=== PATIENT | male | born 1955 | race Two or more races ===

== ENCOUNTER 2024-07-13 20:02 | Inpatient (IN) | payer MEDICARE, OTHER ==
[~2024-07-13] VITALS: Ht 165.1 cm; Wt 79.2 kg
--- NOTE | 2024-07-13 20:37 | ED.PDOC ---
Musculoskeletal HPI Comments 68-year-old male who came to ER due to lower extremity swelling. Patient has history of liver cirrhosis, congestive heart failure, hypertension, diabetes, epilepsy. Patient had a right hip fracture due to a fall injury a year ago, it has been in therapy since then. For the past week, patient complaining of right lower extremity swelling and pain. Complaining of difficulty ambulating. Denies any acute chest pains or shortness a breath. Denies using any blood thinners Chief Complaint: Lower extremity Time Seen by MD: 20:36 Reviewed Notes: Nurses Notes Information Source: Patient Mode of Arrival: Wheelchair Extremity Location: Leg Timing: Days Prehospital treatment: None Severity: Moderate Able to Move Extremity: Yes Bear Weight: Limited Pain: Moderate Hand Dominance: Right Mechanism: Spontaneous Circumstances: Fall Onset of Symptoms: After Trauma Symptoms: Swelling, Pain History of: Hip Operation (Right) Associated signs and symptoms: Leg pain (Right) Past Medical History PAST MEDICAL HISTORY: CHF, DM, HTN, Liver (Liver cirrhosis) Past Medical History (Other): Hepatic encephalopathy, traumatic brain injury, portal hypertension Surgical History (Other): Right hip surgery Family History Family History: Reviewed,noncontributory to illness Social History Smoker: Non-Smoker Alcohol: Sober Drugs: Denies Drug Use Lives In: Home Constitutional: denies: chills, diaphoresis, fatigue, fever, malaise, sweats, weakness, others EENTM: denies: blurred vision, double vision, ear bleeding, ear discharge, ear drainage, ear pain, ear ringing, eye pain, eye redness, hearing loss, mouth pain, mouth swelling, nasal discharge, nose bleeding, nose congestion, nose pain, photophobia, tearing, throat pain, throat swelling, voice changes, others Respiratory: denies: cough, hemoptysis, orthopnea, SOB at rest, shortness of breath, SOB with excertion, stridor, wheezing, others Cardiovascular: denies: chest pain, dizzy spells, diaphoresis, Dyspnea on exertion, edema, irregular heart beat, left arm pain, lightheadedness, palp itations, PND, syncope, others Gastrointestinal: denies: abdomen distended, abdominal pain, blood streaked bowels, constipated, diarrhea, dysphagia, difficulty swallowing, hematemesis, melena, nausea, poor appetite, poor fluid intake, rectal bleeding, rectal pain, vomiting, others Genitourinary: denies: burning, dysuria, flank pain, frequency, hematuria, incontinence, penile discharge, penile sore, pain, testicle pain, testicle swelling, urgency, others Neurological: denies: dizziness, fainting, headache, left sided numbness, left sided weakness, numbness, paresthesia, pre-existing deficit, right sided numbness, right sided weakness, seizure, speech problems, tingling, tremors, weakness, others Musculoskeletal: reports: muscle pain (Right lower extremity), muscle stiffness (Right lower extremity swelling); denies: back pain, gout, joint pain, joint swelling, neck pain, others Integumetry: denies: bruises, change in color, change in hair/nails, dryness, laceration, lesions, lumps, rash, wounds, others Allergic/Immunocompromised: denies: Difficulty Healing, Frequent Infections, Hives, Itching, others Hematologic/Lymphatic: denies: anemia, blood clots, easy bleeding, easy bruising, swollen glands, others Endocrine: denies: excessive hunger, excessive sweating, excessive thirst, excessive urination, flushing, intolerance to cold, intolerance to heat, unexplained weight gain, unexplained weight loss, others Psychiatric: denies: anxiety, bipolar disorder, depression, hopeless, panic disorder, schizophrenia, sleepless, suicidal, others Physical Exam General Appearance: No Apparent Distress, Normal HEENT: Normal ENT Inspection, Pharynx Normal, TMs Normal Neck: Full Range of Motion, Non-Tender, Normal, Normal Inspection Respiratory: Chest Non-Tender, Lungs Clear, No Accessory Muscle Use, No Respiratory Distress, Normal Breath Sounds Cardiovascular: No Edema, No JVD, No Murmur, No Gallop, Normal Peripheral Pulses, Regular Rate/Rhythm Breast Exam: Deferred Gastrointestinal: No Organomegaly, Non Tender, No Pulsatile Mass, Normal Bowel Sounds, Soft Genitalia: Deferred Pelvic: Deferred Rectal: Deferred Extremities: No calf tenderness, Normal capillary refill, Normal inspection, Normal range of motion, Non-tender, No pedal edema Musculoskeletal : Apperance: Normal Neurologic: Alert, home child care provider II-XII nml as Tested, No Motor Deficits, Normal Affect, Normal Mood, No Sensory Deficits Cerebellar Function: Normal Reflexes: Normal Skin: Dry, Normal Color, Warm Lymphatic: No Adenopathy Was a procedure done? Was a procedure done?: No Differential Diagnosis EXT Differential Diagnosis: CHF, Deep Vein Thrombosis, Neurovascular injury, Arthritis X-Ray, Labs, Meds, VS Vital Signs Date Time Temp Pulse Resp B/P (MAP) Pulse Ox O2 Delivery O2 Flow Rate FiO2 07/13/24 21:07 97.8 65 17 134/67 (89) 98 97.8 Lab Test 07/13/24 21:49 07/13/24 20:48 Range/Units Troponin I High Sensitivity 7 7 </=54 ng/L White Blood Count 6.4 4.4-10.8 10^3/uL Red Blood Count 4.32 L 4.5-5.90 10^6/uL Hemoglobin 15.4 13.5-17.5 g/dL Hematocrit 43.5 41.0-53.0 % Mean Corpuscular Volume 100.8 H 80.0-100.0 fL Mean Corpuscular Hemoglobin 35.7 H 28.0-32.0 pg Mean Corpuscular Hemoglobin Concent 35.4 32.0-36.0 g/dL Red Cell Distribution Width 17.5 H 11.8-14.3 % Platelet Count 38 L 140-450 10^3/uL Mean Platelet Volume 8.9 6.9-10.8 fL Neutrophils (%) (Auto) 70.9 37.0-80.0 % Lymphocytes (%) (Auto) 19.1 10.0-50.0 % Monocytes (%) (Auto) 7.9 0.0-12.0 % Eosinophils (%) (Auto) 1.3 0.0-7.0 % Basophils (%) (Auto) 0.8 0.0-2.0 % Neutrophils # (Auto) 4.5 1.6-8.6 10 ^3/uL Lymphocytes # (Auto) 1.2 0.4-5.4 10 ^3/uL Monocytes # (Auto) 0.5 0-1.3 10 ^3/uL Eosinophils # (Auto) 0.1 0-0.8 10 ^3/uL Basophils # (Auto) 0 0-0.2 10 ^3/uL Nucleated Red Blood Cells 0.3 % Platelet Estimate Decreased Macrocytosis Slight Sodium Level 137 136-145 mmol/L Potassium Level 4.8 3.5-5.1 mmol/L Chloride Level 110 H 98-107 mmol/L Carbon Dioxide Level 23 20-31 mmol/L Anion Gap 4 L 5-15 Blood Urea Nitrogen 10 9-23 mg/dL Creatinine 0.53 L 0.700-1.30 mg/dL Glomerular Filtration Rate Calc 110 >90 mL/min BUN/Creatinine Ratio 18.9 10.0-20.0 Serum Glucose 343 H 74-106 mg/dL Calcium Level 8.3 L 8.7-10.4 mg/dL B-Type Natriuretic Peptide 75.40 0-100 pg/mL CHEST RADIOGRAPH Indication: sob Technique: Single frontal view of the chest was obtained Comparison: None FINDINGS: Lines and Tubes: None Lungs: Mildly prominent pulmonary interstitial markings diffusely throughout both lung de jesus.. Pleura: No effusion. No pneumothorax. Cardiomediastinal contours: Unremarkable Bones: No acute osseous abnormality. IMPRESSION: 1. Prominent interstitial markings diffusely throughout both lung de jesus. Correlate clinically for possible congestive failure versus pneumonia. Time of 1ST Reevaluation: 20:32 Reevaluation 1ST: Unchanged Patient Education/Counseling: Diagnosis, Treatment Family Education/Counseling: Diagnosis, Treatment Departure 1 Departure Time of Disposition: 23:35 (Patient with a worsening lower extremity edema generally feeling unwell. We will admit patient for further workup and expert consultation) Impression: Primary Impression: Lower extremity edema Additional Impression: Generalized weakness Disposition: ADMITTED INPATIENT Admit to: Med Surg Condition: Serious Critical Care Note Critical Care Time?: No Stability Stability form required: No Heart Score Heart Score: Heart Score Response (Comments) Value History N/A 0 EKG N/A 0 Age N/A 0 Risk Factors N/A 0 Troponin N/A 0 Total 0 I personally scribed for CARLA YUEN MD ([email or web address]) on 07/13/24 at 20:37. Electronically submitted by Checo Mcelroy ([email or web address]). I personally scribed for CARLA YUEN MD ([email or web address]) on 07/13/24 at 21:29. Electronically submitted by Checo Mcelroy ([employer]). CARLA YUEN MD July 13, 2024 20:37
[2024-07-13 20:59] LABS: Basophils # (auto) 0 10 ^3/uL (0-0.2); Eosinophils # (auto) 0.1 10 ^3/uL (0-0.8); Hemoglobin 15.4 g/dL (13.5-17.5); Lymphocytes # (auto) 1.2 10 ^3/uL (0.4-5.4); Monocytes # (auto) 0.5 10 ^3/uL (0-1.3); Nucleated Red Blood Cells % 0.3 %; Red Cell Distribution Width 17.5 % (11.8-14.3)
[2024-07-13 21:01] LABS: Basophils % (auto) 0.8 % (0.0-2.0); Eosinophils % (auto) 1.3 % (0.0-7.0); Hematocrit 43.5 % (41.0-53.0); Lymphocytes % (auto) 19.1 % (10.0-50.0); Mean Corpuscular Hemoglobin 35.7 pg (28.0-32.0); Mean Corpuscular Hgb Conc. 35.4 g/dL (32.0-36.0); Mean Corpuscular Volume 100.8 fL (80.0-100.0); Monocytes % (auto) 7.9 % (0.0-12.0); Neutrophils # (auto) 4.5 10 ^3/uL (1.6-8.6); Neutrophils % (auto) 70.9 % (37.0-80.0); Platelet Count (auto) 38 10^3/uL (140-450); Red Blood Cells 4.32 10^6/uL (4.5-5.90); White Blood Cell 6.4 10^3/uL (4.4-10.8)
[2024-07-13 21:13] LABS: Anion Gap 4 (5-15); Carbon Dioxide 23 mmol/L (20-31); Chloride 110 mmol/L (98-107); Potassium 4.8 mmol/L (3.5-5.1); Sodium 137 mmol/L (136-145)
[2024-07-13 21:16] LABS: Calcium 8.3 mg/dL (8.7-10.4); Macrocytosis Slight; Platelet Estimate Decreased
[2024-07-13 21:19] LABS: BUN/Creatinine Ratio 18.9 (10.0-20.0); Blood Urea Nitrogen 10 mg/dL (9-23); Glucose 343 mg/dL (74-106)
--- NOTE | 2024-07-13 21:22 | DVH ---
CHEST RADIOGRAPH Indication: sob Technique: Single frontal view of the chest was obtained Comparison: None FINDINGS: Lines and Tubes: None Lungs: Mildly prominent pulmonary interstitial markings diffusely throughout both lung de jesus.. Pleura: No effusion. No pneumothorax. Cardiomediastinal contours: Unremarkable Bones: No acute osseous abnormality. IMPRESSION: 1. Prominent interstitial markings diffusely throughout both lung de jesus. Correlate clinically for po ssible congestive failure versus pneumonia.
--- NOTE | 2024-07-14 00:13 | DVH ---
Bilateral lower extremity venous duplex Clinical History: rle edema Comparison: None Technique: Duplex Doppler evaluation of the deep venous systems of both lower extremities from the common femora l veins to the popliteal veins including color Doppler and spectral/pulsed waveform analysis was perf ormed. Findings: RIGHT SIDE: The common femoral vein demonstrates appropriate compressibility and waveform variability. There is compressibility/patency of the great saphenous vein at the proximal thigh. The femoral vein demonstrates appropriate compressibility and waveform variability. The deep femoral vein demonstrates appropriate compressibility and waveform variability. The popliteal vein demonstrates appropriate compressibility and waveform variability. There is normal compressibility at the tibioperoneal trunk. LEFT SIDE: The common femoral vein demonstrates appropriate compressibility and waveform variability. There is compressibility/patency of the great saphenous vein at the proximal thigh. The femoral vein demonstrates appropriate compressibility and waveform variability. The deep femoral vein demonstrates appropriate compressibility and waveform variability. The popliteal vein demonstrates appropriate compressibility and waveform variability. There is normal compressibility at the tibioperoneal trunk. Impression: No evidence of right or left femoropopliteal venous thrombosis.
[2024-07-14] MEDS ORDERED: DOCUSATE SOD 100 MG CAP PO PRN (00:45)
[2024-07-14] MEDS ORDERED: ONDANSETRON HCL 4 MG/2 ML VIAL IV PRN (00:45)
[2024-07-14] MEDS ORDERED: FUROSEMIDE 20 MG TAB PO ONE (01:00)
--- NOTE | 2024-07-14 01:12 | DVHHP2 ---
History of Present Illness History of Present Illness Patient is 68 years old male with a past medical history of hypertension, diabetes mellitus type 2, hyperlipidemia, CHF, cirrhosis of liver, portal hypertension, history of epilepsy, history of hepatic encephalopathy, history of right hip fracture, status post surgery, history of traumatic brain injury came with a complaint of leg swelling. As per patient he has been having worsening leg swelling for last 1 week. It was mild before but leg swelling got worse in last 1 week. Patient reported he ambulates occasionally but since most of the time. Patient denied any chest pain, shortness of breath, acute diarrhea, or constipation, joint pain or swelling, any sick contact, nausea or vomiting. Initial lab workup revealed thrombocytopenia with a platelet 38, MCV 100.8, blood sugar 343, serum bilirubin 3.1, direct bilirubin 1.24, AST and ALT with a normal limit. Ammonia 124. troponin bed with a normal limit. Positive for in fluenza type B. negative for COVID. Chest x-ray -Prominent interstitial markings diffusely throughout both lung de jesus. Correlate clinically for possible congestive failure versus pneumonia. Venous Doppler negative for DVT. Ultrasound of the gallbladder revealed- Cirrhosis. Absent flow in the main portal vein suspicious for portal vein thrombosis. Splenomegaly. Ascites. Past Medical History hypertension, diabetes mellitus type 2, hyperlipidemia, CHF, cirrhosis of liver, portal hypertension, history of epilepsy, history of hepatic encephalopathy, history of right hip fracture, status post surgery, history of traumatic brain injury Past Surgical History Right hip surgery Past Social History Lives with niece, ex alcoholic/denied smoking or drug abuse. Homeless lactulose 30 mL per day, Lasix 20 mg p.o. daily, Keppra 500 b.i.d., pantoprazole daily, insulin Lantus 20 q.a.m., insulin lispro 8 units subcutaneously 3 times a day. Review of Systems Review of Systems Allergy- NKDA Patient was seen today at the bedside. Cardiovascular- deny acute chest pain or shortness of breath or cough or palpitation Respiratory denies cough or short of breath or wheezing Gastrointestinal- denies any rectal bleeding, nausea or vomiting Neurological- denies acute dysarthria, dysphagia, change in vision Psychiatry- denies depression or SI or HI Skin- denies acute rash or purpura Allergies: Coded Allergies: NO KNOWN ALLERGIES (Unverified , 07/14/24) Medications Current Medications Medications Dose Ordered Sig/Annette Route Start Time Stop Time Status Last Admin Dose Admin Sodium Chloride 10 ml Q8HR IV 07/14/24 06:00 UNV Ondansetron HCl 4 mg Q4HP PRN IV 07/14/24 00:45 UNV Docusate Sodium 100 mg BIDPRN PRN PO 07/14/24 00:45 UNV Lactulose 30 ml BID PO 07/14/24 10:00 UNV Insulin Glargine 20 units DAILY@1000 SC 07/14/24 10:00 UNV Insulin Human Lispro 6 units TIDAC SC 07/14/24 07:00 UNV Levetiracetam 500 mg BID PO 07/14/24 10:00 UNV Pantoprazole Sodium 40 mg DAILY@0600 PO 07/14/24 06:00 UNV Furosemide 20 mg BIDD IV 07/14/24 06:00 UNV Exam Vital Signs Vital Signs Date Time Temp Pulse Resp B/P (MAP) Pulse Ox O2 Delivery O2 Flow Rate FiO2 07/13/24 23:12 98.4 67 20 140/69 (92) 97 98.4 07/13/24 23:12 Room Air Exam General examination- awake, alert, oriented, spider telangiectasia at the chest+ HEENT- PEERLA, no acute nasal discharge Cardiovascular- S1-S2 audible, rate and rhythm regular, no murmur Respiratory- bilateral lower lung crackles+ Gastrointestinal-nontender, bowel sound+. Nondistended Musculoskeletal-no acute joint swelling or tenderness or redness Lower extremity- bilateral leg edema+++ Neurological- cranial nerves intact, no acute dysarthria or dysphagia Psychiatry- denies depression or SI or HI Skin- no acute rash or purpura Labs/Xrays Labs Test 07/13/24 21:49 07/13/24 20:48 Range/Units Troponin I High Sensitivity 7 </=54 ng/L White Blood Count 6.4 4.4-10.8 10^3/uL Red Blood Count 4.32 L 4.5-5.90 10^6/uL Hemoglobin 15.4 13.5-17.5 g/dL Hematocrit 43.5 41.0-53.0 % Mean Corpuscular Volume 100.8 H 80.0-100.0 fL Mean Corpuscular Hemoglobin 35.7 H 28.0-32.0 pg Mean Corpuscular Hemoglobin Concent 35.4 32.0-36.0 g/dL Red Cell Distribution Width 17.5 H 11.8-14.3 % Platelet Count 38 L 140-450 10^3/uL Mean Platelet Volume 8.9 6.9-10.8 fL Neutrophils (%) (Auto) 70.9 37.0-80.0 % Lymphocytes (%) (Auto) 19.1 10.0-50.0 % Monocytes (%) (Auto) 7.9 0.0-12.0 % Eosinophils (%) (Auto) 1.3 0.0-7.0 % Basophils (%) (Auto) 0.8 0.0-2.0 % Neutrophils # (Auto) 4.5 1.6-8.6 10 ^3/uL Lymphocytes # (Auto) 1.2 0.4-5.4 10 ^3/uL Monocytes # (Auto) 0.5 0-1.3 10 ^3/uL Eosinophils # (Auto) 0.1 0-0.8 10 ^3/uL Basophils # (Auto) 0 0-0.2 10 ^3/uL Nucleated Red Blood Cells 0.3 % Platelet Estimate Decreased Macrocytosis Slight Sodium Level 137 136-145 mmol/L Potassium Level 4.8 3.5-5.1 mmol/L Chloride Level 110 H 98-107 mmol/L Carbon Dioxide Level 23 20-31 mmol/L Anion Gap 4 L 5-15 Blood Urea Nitrogen 10 9-23 mg/dL Creatinine 0.53 L 0.700-1.30 mg/dL Glomerular Filtration Rate Calc 110 >90 mL/min BUN/Creatinine Ratio 18.9 10.0-20.0 Serum Glucose 343 H 74-106 mg/dL Calcium Level 8.3 L 8.7-10.4 mg/dL B-Type Natriuretic Peptide 75.40 0-100 pg/mL Assessment/Plan Assessment/Plan Assessment and plan Suspected acute decompensated liver failure Suspected portal vein thrombosis-ordered CT angio of the abdomen and pelvis- anticoagulant could not be started due to thrombocytopenia, platelets 22636 Rule out exertion of heart failure systolic versus diastolic Bilateral leg swelling likely due to acute decompensated heart failure/decompensated CHF Influenza type B positive Thrombocytopenia likely due to portal hypertension Spider telangiectasia Portal hypertension Splenomegaly Ascites Cirrhosis of liver Hypertension Diabetes mellitus type 2 Epilepsy Hyperlipidemia History of traumatic brain injury Doppler Study negative for DVT Ultrasound of the gallbladder revealed- Cirrhosis. Absent flow in the main portal vein suspicious for portal vein thrombosis. Splenomegaly. Ascites. Plan Anticoagulant could not be started for suspected portal vein thrombosis due to thrombocytopenia Ordered IV Lasix 40 b.i.d. Ordered spironolactone 25 mg p.o. daily Ordered insulin lispro and Lantus Ordered Keppra 500 mg b.i.d. Lactulose 30 mL b.i.d. Ordered Tamiflu Pantoprazole as prescribed Ordered ultrasound of the gallbladder Ordered hepatic panel Ordered hepatitis panel Ordered PT INR Ordered serum ammonia level Ordered UDS, serum alcohol Ordered urinalysis Goals of care, Code status ; discussed with >15 minutes PUD prophylaxis: Pantoprazole DVT prophylaxis: Patient with thrombocytopenia, ordered SCD Plan discussed with Dr. Todd , nursing staff, Total time spent on patient evaluation, chart review, assessment and plan, discussion discussion >35 minutes Plan discussed with: Patient, Other (nividhya, RN) My Orders Orders - CHAMP GUZMAN RESIDENT Procedure Category Date Status Time Admit ADMIT 07/14/24 Transmitted 00:41 Code Status CODE 07/14/24 Transmitted 00:41 Sodium Chloride Lock PHA 07/14/24 Logged (Saline Lock Ns) 06:00 Ondansetron Hcl PHA 07/14/24 Logged (Zofran) 00:45 Docusate Sodium PHA 07/14/24 Logged Capsule (Colace 00:45 Complete Blood Count LAB 07/15/24 Verified 04:00 Comprehensive LAB 07/15/24 Verified Metabolic Panel 04:00 Echo 2d Mode Cardiac US 07/14/24 Logged DOP 00:41 Notify Of Changes [facility] 07/14/24 In Process From Base 00:41 Electrical Technician For [facility] 07/14/24 In Process 24 Hours 00:41 Hepatic Panel LAB 07/14/24 Logged 00:46 Thyroid Stimulating LAB 07/14/24 Logged Hormone 00:46 Magnesium LAB 07/14/24 Logged 00:46 Ammonia LAB 07/14/24 Logged 00:46 Acute Hepatitis Panel LAB 07/14/24 Logged 00:46 Hepatitis B Core Igm LAB 07/14/24 Logged 00:46 Hepatitis B Core LAB 07/14/24 Logged Total Antibod 00:46 Hepatitis B Surface LAB 07/14/24 Logged Antibody 00:46 Hepatitis B Surface LAB 07/14/24 Logged Antigen 00:46 Hepatitis C Antibody LAB 07/14/24 Logged 00:46 Prothrombin Time W/ LAB 07/14/24 Logged INR 00:46 Gallbladder US 07/14/24 Logged 00:46 Spironolactone PHA 07/14/24 Logged (Aldactone) 01:00 Lactulose Oral PHA 07/14/24 Logged 10:00 Lactulose Oral PHA 07/14/24 Logged 01:00 Insulin Lantus PHA 07/14/24 Logged (Glargine) (Lantus) 10:00 Insulin Lispro PHA 07/14/24 Logged (Human) (Humalog) 07:00 Levetiracetam Tablet PHA 07/14/24 Logged (Keppra Tablet) 01:00 Levetiracetam Tablet PHA 07/14/24 Logged (Keppra Tablet) 10:00 Pantoprazole Tablet PHA 07/14/24 Logged (Protonix Tablet) 06:00 Pantoprazole Tablet PHA 07/14/24 Logged (Protonix Tablet) 01:00 Lactic Acid W/ Reflex LAB 07/14/24 Logged Order 00:55 Furosemide Injection PHA 07/14/24 Logged (Lasix Injection) 01:00 Furosemide Injection PHA 07/14/24 Logged (Lasix Injection) 06:00 Covid19 Antigen Radha LAB 07/14/24 Logged Rapid Influenza A&B LAB 07/14/24 Logged 01:00 Drug Screen LAB 07/14/24 Logged 01:02 Blood Alcohol LAB 07/14/24 Logged 01:02 Date of Service: July 14, 2024 Billing Provider: MOISE TODD MD Common Visit Codes: 26343-UCXKGFB INP/OBS CARE (HIGH) Secondary Visit Codes: 46097-[id number] CARE PLAN 30 MINUTES THOMASRAYMUNDOBRODY RESIDENT July 14, 2024 01:12
[2024-07-14] MEDS ORDERED: DEXTROSE (50%) 50ML SYRG IV PRN (01:15)
[2024-07-14 02:16] LABS: INR 1.3 (0.9-1.15); Prothrombin Time 13.4 sec (9.3-11.8)
[2024-07-14 02:22] LABS: Alanine Aminotransferase 28 U/L (7-40); Aspartate Aminotransferase 27 U/L (13-40); Magnesium 1.7 mg/dL (1.6-2.6)
[2024-07-14 02:23] LABS: Albumin 2.4 g/dL (3.2-4.8); Alkaline Phosphatase 152 U/L (46-116); Bilirubin, Direct 1.2 mg/dL (<0.3); Bilirubin, Total 3.1 mg/dL (0.2-1.0); Blood Alcohol < 3.0 mg/dL (<10)
[2024-07-14 03:38] LABS: Folate (Folic Acid) 11.44 ng/mL (>5.38)
--- NOTE | 2024-07-14 04:34 | DVH ---
EXAM: US GALLBLADDER INDICATION: History of cirrhosis of liver TECHNIQUE: Multiple real-time sonographic images were obtained of the right upper quadrant. COMPARISON: None FINDINGS: The liver is nodular in contour with increased echotexture. The liver measures 12.8 cm. Th ere is no vascular flow identified in the main portal vein. The gallbladder is not visualized. Common bile duct measures 0.4 cm. The right kidney measures 7.5 cm. The right kidney is normal in contour, size, and shape. The echo genicity is normal. There is no hydronephrosis. The pancreas is not well visualized due to overlying bowel gas. Visualized portions of the aorta and inferior vena cava are unremarkable. There is mild ascites. The spleen measures 18.3 cm in length. IMPRESSION: 1. Cirrhosis. Absent flow in the main portal vein suspicious for portal vein thrombosis. 2. Splenomegaly. 3. Ascites. 4. Visualized.
[2024-07-14] MEDS: LACTULOSE 20Gm/30ML SOLN PO ONE ×2 (04:58→06:30)
[2024-07-14] MEDS: SPIRONOLACTONE 25 MG TAB PO ONE (04:59)
[2024-07-14] MEDS: PANTOPRAZOLE 40 MG TAB PO ONE (04:59)
[2024-07-14] MEDS: levETIRAcetam 500 MG TAB PO ONE (05:04)
[2024-07-14] MEDS: FUROSEMIDE 20 MG/2 ML VIAL IV SCH (05:34)
[2024-07-14] MEDS: FUROSEMIDE 40 MG/4 ML VIAL IV ONE (05:35)
[2024-07-14 05:56] LABS: COVID19 ANTIGEN SOFIA FIA NEGATIVE (NEGATIVE); Rapid Influenza A Negative (Negative)
[2024-07-14 05:57] LABS: Rapid Influenza B Positive (Negative)
[2024-07-14] MEDS ORDERED: FUROSEMIDE 20 MG TAB PO SCH (06:00)
[2024-07-14] MEDS ORDERED: FUROSEMIDE 20 MG/2 ML VIAL IV SCH (06:00)
[2024-07-14] MEDS: SODIUM CHLOR 0.9% PF (SALINE LOCK) 10ML VIAL/SYR IV SCH (06:30)
[2024-07-14] MEDS: OSELTAMIVIR 75 MG CAP PO ONE (06:32)
[2024-07-14] MEDS: PANTOPRAZOLE 40 MG TAB PO SCH (06:33)
[2024-07-14] MEDS: InsuLIN REG 1unit/0.01ml Soln (100units/ml) SC SCH (06:43)
[2024-07-14] MEDS: ACCU-CHEK COMFORT CURVE STRIP VI SCH (06:44)
[2024-07-14 06:53] LABS: INR 1.25 (0.9-1.15); Partial Thromboplastin Time 31.5 SEC (24.5-34.5)
[2024-07-14] MEDS ORDERED: INSULIN LISPRO (HUMAN) 100 UNITS/ML ML SC SCH (07:00)
[2024-07-14] MEDS: IOHEXOL 300 MG/ML 100ML BOTTLE IJ ONE (09:48)
--- NOTE | 2024-07-14 11:43 | DVH ---
Exam: CT CT AB PELVIS W WO CON-IV ONLY History: Rule out portal vein thrombosis Comparison Study: None Technique: Multidetector spiral CT of the abdomen and pelvis was performed from lung bases to pubic s ymphysis. Initial imaging was done without IV contrast, followed by post contrast images of the abdom en and pelvis. Intravenous contrast was administered during this examination. Noncontrast and portal venous phase imaging was obtained. Axial, coronal and sagittal multiplanar reformats were performed b y the technologist on a separate workstation. Radiation Dose : CT Dose: CTDI volume is 14.42 mGy. Dose-length product is 1430.87 mGy*cm Findings: Lung Bases: Diffuse increased interstitial prominence. Tree-in-bud nodularity at the lung bases. Fi ndings may represent a combination of chronic fibrotic change and superimposed atypical infectious or inflammatory process. Liver: Hepatic cirrhosis. Presumed posttreatment related change measuring 7.2 cm is present in the po sterior right hepatic dome. Gallbladder and Biliary Tree: Cholelithiasis noted without secondary findings of cholecystitis or latesha iary obstruction. Spleen: Splenomegaly. Pancreas: The pancreas is normal in appearance without focal lesions or abnormal enhancement. Adrenal Glands: Unremarkable Kidneys: Kidneys demonstrate normal symmetric enhancement without focal lesions, calculi or hydroneph rosis. Bladder: Small volume gas in the urinary bladder; nonspecific. Bowel: The stomach is grossly normal in appearance. Small bowel and colon are normal in caliber and d istribution. Normal appendix is visualized in the right lower quadrant without findings of appendicit is. Ascites: Absent Lymphadenopathy: No mesenteric, retroperitoneal or periportal lymphadenopathy. Abdominal Wall and Mesentery: Unremarkable. Vasculature: Tips is present without flow. 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 Numerous varices are pres ent throughout the abdomen. IVC filter in-situ. The visualized abdominal aorta is normal in size and caliber. Abdominal and pelvic vessels demonstrate normal enhancement. Pelvic Organs: Unremarkable Musculoskeletal: No aggressive focal bony lesions, acute fractures or dislocation. Degenerative merlos es of the spine. Chronic appearing compression deformity of the superior L3 vertebral body. IMPRESSION: TIPS present without flow. Main portal vein appears thrombosed. Hepatic cirrhosis and sequelae of portal hypertension including splenomegaly and numerous abdominal v arices. Presumed posttreatment related change in the posterior right hepatic dome.
[2024-07-14 11:48] LABS: Hepatitis A Ab IgM Negative; Hepatitis B Core IgM Negative (Negative); Hepatitis B Surface Antibody Negative (Negative); Hepatitis B Surface Antigen Negative (Negative)
[2024-07-14 11:51] LABS: Hepatitis C Antibody Reactive (Negative)
[2024-07-14] MEDS: INSULIN LANTUS (GLARGINE) 1 /0.01ml (100units/ml) SC SCH (11:56)
[2024-07-14] MEDS: LACTULOSE 20Gm/30ML SOLN PO SCH (12:01)
[2024-07-14] MEDS: levETIRAcetam 500 MG TAB PO SCH (12:01)
--- NOTE | 2024-07-14 15:21 | DVHPNRES ---
Progress Note Date Seen: July 14, 2024 Resident Creating Document: DUANE PAULINO RESIDENT Has the PT tested + for MRSA If YES, has PT been informed?: No Medical Necessity Reason Pt with a Central, PICC or Fol: No Medical Necessity Reason History of Present Illness Patient is 68 years old male with a past medical history of hypertension, diabetes mellitus type 2, hyperlipidemia, CHF, cirrhosis of liver, portal hypertension, history of epilepsy, history of hepatic encephalopathy, history of right hip fracture, status post surgery, history of traumatic brain injury came with a complaint of leg swelling. As per patient he has been having worsening leg swelling for last 1 week. It was mild before but leg swelling got worse in last 1 week. Patient reported he ambulates occasionally but since most of the time. Patient denied any chest pain, shortness of breath, acute diarrhea, or constipation, joint pain or swelling, any sick contact, nausea or vomiting. Initial lab workup revealed thrombocytopenia with a platelet 38, MCV 100.8, blood sugar 343, serum bilirubin 3.1, direct bilirubin 1.24, AST and ALT with a normal limit. Ammonia 124. troponin bed with a normal limit. Positive for influenza type B. negative for COVID. Chest x-ray -Prominent interstitial markings diffusely throughout both lung de jesus. Correlate clinically for possible congestive failure versus pneumonia. Venous Doppler negative for DVT. Ultrasound of the gallbladder revealed- Cirrhosis. Absent flow in the main portal vein suspicious for portal vein thrombosis. Splenomegaly. Ascites. Past Medical History:hypertension, diabetes mellitus type 2, hyperlipidemia, CHF, cirrhosis of liver, portal hypertension, history of epilepsy, history of hepatic encephalopathy, history of right hip fracture, status post surgery, history of traumatic brain injury Past Surgical History:Right hip surgery Past Social History:Lives with niece, ex alcoholic/denied smoking or drug abuse. Home medication: lactulose 30 mL per day, Lasix 20 mg p.o. daily, Keppra 500 b.i.d., pantoprazole daily, insulin Lantus 20 q.a.m., insulin lispro 8 units subcutaneously 3 times a day. 07/14 Patient presented to the ED with a chief complaints of bilateral leg swellings for 1 weeks. Patient is a poor historian. He mentioned having liver,CHF and he could not mention any other health related problems or he does not know. Information was mainly from his cousin.Patient denied any chest pain, shortness of breath, acute diarrhea, or constipation, joint pain or swelling, any sick contact, nausea or vomiting. Initial lab workup revealed thrombocytopenia with a platelet 38, MCV 100.8, blood sugar 343, serum bilirubin 3.1, direct bilirubin 1.24, AST and ALT with a normal limit. Ammonia 124. troponin and BNP are within a normal limit. Positive for influenza type B. negative for COVID. Chest x-ray showed prominent interstitial markings diffusely throughout both lung de jesus. CT abdomen showed TIPS present without flow. Main portal vein appears thrombosed. Hepatic cirrhosis and sequelae of portal hypertension including splenomegaly and numerous abdominal varices. Subjective Review of Systems Constitutional: Denies fever no chills no feeling of malaise HEENT: Denies headache, ear pain, ear discharges, conjunctivitis, nasal discharge throat pain Cardiovascular: Denies chest pain, palpitation, orthopnea, PND, or pedal edema Respiratory: Denies shortness of breath, cough cough, sputum production, hemoptysis, GI: Denies abdominal pain, nausea, vomiting, diarrhea, hematemesis, hematochezia, Abdominal swelling : Denies frequency, urgency, hematuria, Endocrine: Denies unintentional weight gain or weight loss, feeling of hot flashes, Ricardo: Denies easy bruising, bleeding disorders, epistaxis Musculoskeletal: Denies joint pains, muscle aches, leg swelling Psych: No evidence of depression, sukhi, suicidal ideation Objective vital signs Vital Sign Date Time Temp Pulse Resp B/P (MAP) Pulse Ox O2 Delivery O2 Flow Rate FiO2 07/14/24 12:53 72 16 138/70 (92) 07/14/24 05:11 98.4 97 98.4 07/13/24 23:12 Room Air medications Current Medications Medications Dose Ordered Sig/Annette Route Start Time Stop Time Status Last Admin Dose Admin Sodium Chloride 10 ml Q8HR IV 07/14/24 06:00 07/14/24 14:01 10 ML Ondansetron HCl 4 mg Q4HP PRN IV 07/14/24 00:45 Docusate Sodium 100 mg BIDPRN PRN PO 07/14/24 00:45 Lactulose 30 ml BID PO 07/14/24 10:00 07/14/24 12:01 30 ML Insulin Glargine 20 units DAILY@1000 SC 07/14/24 10:00 07/14/24 11:56 20 UNITS Levetiracetam 500 mg BID PO 07/14/24 10:00 07/14/24 12:01 500 MG Pantoprazole Sodium 40 mg DAILY@0600 PO 07/14/24 06:00 Furosemide 40 mg BIDD IV 07/14/24 06:00 07/14/24 05:34 40 MG Diagnostic Test (Pha) 1 strip ACHS 07/14/24 07:00 07/14/24 11:45 1 STRIP Insulin Human Regular ACHS SC 07/14/24 07:00 07/14/24 11:55 3 UNITS Dextrose 50 ml UD PRN IV 07/14/24 01:15 Oseltamivir Phosphate 75 mg Q12HR PO 07/14/24 22:00 07/19/24 21:59 Examination General examination- awake, alert, oriented, spider telangiectasia at the chest+ HEENT- PEERLA, no acute nasal discharge Cardiovascular- S1-S2 audible, rate and rhythm regular, no murmur Respiratory- bilateral lower lung crackles+ Gastrointestinal-nontender, bowel sound+. distended Musculoskeletal-no acute joint swelling or tenderness or redness Extremity- bilateral leg edema+++ Neurological- cranial nerves intact, no acute dysarthria or dysphagia Psychiatry- denies depression or SI or HI Skin- no acute rash or purpura laboratory and microbiology Laboratory Tests 07/13/24 20:48 Test 07/13/24 20:48 Range/Units Serum Glucose 343 H 74-106 mg/dL Problem List/Assessment/Plan Problem List/Assessment/Plan Assessment/Plan Suspected acute decompensated liver failure Suspected portal vein thrombosis-ordered CT angio of the abdomen and pelvis- anticoagulant could not be started due to thrombocytopenia, platelets [id number] Rule out exertion of heart failure systolic versus diastolic Bilateral leg swelling likely due to acute decompensated heart failure/decompensated CHF Influenza type B positive Thrombocytopenia likely due to portal hypertension Spider telangiectasia Portal hypertension Splenomegaly Ascites Cirrhosis of liver Hypertension Diabetes mellitus type 2 Epilepsy Hyperlipidemia History of traumatic brain injury Hyperammonemia Plan Anticoagulant could not be started for suspected portal vein thrombosis due to thrombocytopenia Continue IV Lasix 40 b.i.d. Continue spironolactone 25 mg p.o. daily Continue insulin lispro and Lantus Continue Keppra 500 mg b.i.d. Lactulose 30 mL b.i.d. Continue Tamiflu (for 3 days) Pantoprazole as prescribed Ordered ultrasound of the gallbladder GI consult, for endoscopy Echo pending Goal of care discussed for more than 20 minute: Full code Case and plan discussed with Dr. Campos Plan discussed with: Patient Date of Service: July 14, 2024 Billing Provider: ANDRESSA CAMPOS MD Common Visit Codes: [id number] INP/OBS CARE(HIGH) DUANE PAULINO RESIDENT July 14, 2024 15:21 ANDRESSA CAMPOS MD July 14, 2024 19:00
[2024-07-14 18:02] VITALS: PULSE 77; RESP 18
[2024-07-14 19:21] VITALS: PULSE 77; RESP 17; O2SAT 99
[2024-07-14] MEDS ORDERED: MORPHINE SULFATE INJ 2 MG/ml SYRG IV PRN (20:15)
[2024-07-14] MEDS ORDERED: hydrALAZINE HCL 20 MG/ML VL IV PRN (20:15)
[2024-07-14 21:43] LABS: Urine Bacteria FEW /hpf (None Seen); Urine Blood 1+ /uL (Negative); Urine Clarity Clear (Clear); Urine Color Light-Yellow (Yellow); Urine Protein, UAD Negative (Negative); Urine Squamous Epithelial Cell FEW /hpf (<5); Urine Urobilinogen Normal (Negative); Urine WBC 5 /HPF (0-3)
[2024-07-14 21:54] LABS: Amphetamine Screen, Urine Neg (NEGATIVE); Barbiturate Scree,Urine Neg (NEGATIVE); Benzodiazephine Screen, Urine Neg (NEGATIVE); Cannabinoid Screen, Urine Neg (NEGATIVE); Cocaine Screen, Urine Neg (NEGATIVE); Opiate Scree,Urine Neg (NEGATIVE); Phencyclidine Screen, Urine Neg (NEGATIVE)
[2024-07-14 22:23] VITALS: BP 138/78; PULSE 78; RESP 18; TEMP 97.8; O2SAT 96
[2024-07-14 23:11] VITALS: BP 138/78; PULSE 78; RESP 16; RESP 18; TEMP 97.8; O2SAT 96
[2024-07-14] MEDS: OSELTAMIVIR 75 MG CAP PO SCH (23:36)
[2024-07-15] VITALS (8 sets, daily range): BP systolic 92–137; BP diastolic 51–81; PULSE 62–80; RESP 16–18; TEMP 97.7–98.6; O2SAT 94–99
[2024-07-15] MEDS ORDERED: ZOFR4T PO (03:41)
[2024-07-15] MEDS ORDERED: FURO1TAB33 PO (03:41)
[2024-07-15] MEDS ORDERED: INSLANTI SC (03:41)
[2024-07-15] MEDS ORDERED: LEVE500T40 PO (03:41)
[2024-07-15] MEDS ORDERED: GABA300C PO (03:41)
[2024-07-15] MEDS ORDERED: LACT10PA2 PO (03:41)
[2024-07-15 07:40] LABS: Basophils # (auto) 0 10 ^3/uL (0-0.2); Basophils % (auto) 0.5 % (0.0-2.0); Eosinophils # (auto) 0.1 10 ^3/uL (0-0.8); Monocytes # (auto) 0.5 10 ^3/uL (0-1.3)
[2024-07-15 07:42] LABS: Eosinophils % (auto) 1.3 % (0.0-7.0); Hematocrit 39.8 % (41.0-53.0); Hemoglobin 14.4 g/dL (13.5-17.5); Lymphocytes # (auto) 1.2 10 ^3/uL (0.4-5.4); Lymphocytes % (auto) 21.8 % (10.0-50.0); Mean Corpuscular Hemoglobin 36.6 pg (28.0-32.0); Mean Corpuscular Hgb Conc. 36.3 g/dL (32.0-36.0); Mean Corpuscular Volume 100.7 fL (80.0-100.0); Monocytes % (auto) 8.8 % (0.0-12.0); Neutrophils # (auto) 3.7 10 ^3/uL (1.6-8.6); Neutrophils % (auto) 67.6 % (37.0-80.0); Nucleated Red Blood Cells % 0.1 %; Platelet Count (auto) 44 10^3/uL (140-450); Red Blood Cells 3.95 10^6/uL (4.5-5.90); Red Cell Distribution Width 16.9 % (11.8-14.3); White Blood Cell 5.5 10^3/uL (4.4-10.8)
[2024-07-15 07:50] LABS: Alanine Aminotransferase 26 U/L (7-40); Anion Gap 7 (5-15); Aspartate Aminotransferase 30 U/L (13-40); BUN/Creatinine Ratio 17.5 (10.0-20.0); Blood Urea Nitrogen 10 mg/dL (9-23); Carbon Dioxide 24 mmol/L (20-31); Potassium 3.7 mmol/L (3.5-5.1); Sodium 140 mmol/L (136-145)
[2024-07-15 07:52] LABS: Albumin 2.2 g/dL (3.2-4.8); Alkaline Phosphatase 126 U/L (46-116); Bilirubin, Total 2.9 mg/dL (0.2-1.0); Calcium 8.3 mg/dL (8.7-10.4); Chloride 109 mmol/L (98-107); Glucose 261 mg/dL (74-106); Total Protein 4.5 g/dL (5.7-8.2)
--- NOTE | 2024-07-15 17:52 | DVHPN2 ---
Subjective he has baseline dysarthria from previous stroke Changes from previous H/P or p: No Changes Objective Vitals Vital Signs Date Time Temp Pulse Resp B/P (MAP) Pulse Ox O2 Delivery O2 Flow Rate FiO2 07/15/24 17:32 126/60 07/15/24 16:42 98.0 80 16 97 98.0 07/15/24 08:11 Nasal Cannula* 2 28 Intake/Output Intake and Output 07/15/24 07:00 Intake Total 900 ml Output Total 350 ml Balance 550 ml Intake Oral 900 ml Output Urine Total 350 ml General Appearance: Alert, Oriented X3 HEENT: Atraumatic Lungs: Clear to auscultation Cardiovascular: Regular rate, Normal S1, Normal S2 Medications Current Medications Medications Dose Ordered Sig/Annette Route Start Time Stop Time Status Last Admin Dose Admin Sodium Chloride 10 ml Q8HR IV 07/14/24 06:00 07/15/24 14:00 10 ML Ondansetron HCl 4 mg Q4HP PRN IV 07/14/24 00:45 Docusate Sodium 100 mg BIDPRN PRN PO 07/14/24 00:45 Lactulose 30 ml BID PO 07/14/24 10:00 07/15/24 10:26 30 ML Insulin Glargine 20 units DAILY@1000 SC 07/14/24 10:00 07/15/24 10:25 20 UNITS Levetiracetam 500 mg BID PO 07/14/24 10:00 07/15/24 10:25 500 MG Pantoprazole Sodium 40 mg DAILY@0600 PO 07/14/24 06:00 07/15/24 06:26 40 MG Furosemide 40 mg BIDD IV 07/14/24 06:00 07/15/24 17:32 40 MG Diagnostic Test (Pha) 1 strip ACHS 07/14/24 07:00 07/15/24 17:00 1 STRIP Insulin Human Regular ACHS SC 07/14/24 07:00 07/15/24 17:28 6 UNITS Dextrose 50 ml UD PRN IV 07/14/24 01:15 Oseltamivir Phosphate 75 mg Q12HR PO 07/14/24 22:00 07/19/24 21:59 07/15/24 10:25 75 MG Hydralazine HCl 10 mg Q6HP PRN IV 07/14/24 20:15 UNV Morphine Sulfate 2 mg Q4HPRN PRN IV 07/14/24 20:15 UNV Laboratory Results Laboratory Tests 07/15/24 04:41 Chemistry Test 07/15/24 04:41 Albumin 2.2 g/dL (3.2-4.8) L Calcium Level 8.3 mg/dL (8.7-10.4) L Total Protein 4.5 g/dL (5.7-8.2) L LFT Test 07/15/24 04:41 Alanine Aminotransferase (ALT) 26 U/L (7-40) Alkaline Phosphatase 126 U/L (46-116) H Aspartate Amino Transferase (AST) 30 U/L (13-40) Total Bilirubin 2.9 mg/dL (0.2-1.0) H Urinalysis Test 07/14/24 21:23 Urine Color Light-yellow (Yellow) Urine Clarity Clear (Clear) Urine pH 7.0 (5.0-9.0) Urine Specific [place] 1.010 (1.001-1.035) Urine Protein Negative (Negative) Urine Ketones Negative (Negative) Urine Blood 1+ /uL (Negative) H Urine Nitrite Negative (Negative) Urine Bilirubin Negative (Negative) Urine Urobilinogen Normal mg/dL (Negative) Urine Leukocyte Esterase Negative /uL (Negative) Urine RBC 11 /hpf (0 - 3) Urine Microscopic WBC 5 /HPF (0-3) H Urine Squamous Epithelial Cells Few /hpf (<5) Urine Bacteria Few /hpf (None Seen) H Urine Glucose Normal mg/dL (Normal) Assessment/Plan Assessment/Plan Suspected acute decompensated liver failure Suspected portal vein thrombosis-ordered CT angio of the abdomen and pelvis- anticoagulant could not be started due to thrombocytopenia, platelets 27819 Rule out exertion of heart failure systolic versus diastolic Bilateral leg swelling likely due to acute decompensated heart failure/decompensated CHF Influenza type B positive Thrombocytopenia likely due to portal hypertension Spider telangiectasia Portal hypertension Splenomegaly Ascites Cirrhosis of liver Hypertension Diabetes mellitus type 2 Epilepsy Hyperlipidemia History of traumatic brain injury Hyperammonemia Plan Anticoagulant could not be started for suspected portal vein thrombosis due to thrombocytopenia Continue IV Lasix 40 b.i.d. Continue spironolactone 25 mg p.o. daily Continue insulin lispro and Lantus Continue Keppra 500 mg b.i.d. Lactulose 30 mL b.i.d.>increase to TID Continue Tamiflu (for 3 days) Pantoprazole as prescribed Ordered ultrasound of the gallbladder GI consult, for endoscopy Echo pending Plan discussed with: Patient Date of Service: July 15, 2024 Billing Provider: ANDRESSA CHARLES MD Common Visit Codes: [id number] INP/OBS CARE(HIGH) ANDRESSA CHARLES MD July 15, 2024 17:52
[2024-07-15] MEDS: LACTULOSE 20Gm/30ML SOLN PO SCH (19:25)
[2024-07-16] VITALS (8 sets, daily range): BP systolic 111–144; BP diastolic 31–68; PULSE 61–74; RESP 16–18; TEMP 97.6–98.4; O2SAT 92–96
--- NOTE | 2024-07-16 09:38 | DVHINCON2 ---
Date of service: Jul 16, 2024 Referring Physician Milena Reason for Consultation Hepatic encephalopathy Portal vein thrombosis Cirrhosis History of Present Illness The patient is a 68-year-old male with a known history of diabetes, hypertension, hyperlipidemia, CHF, history of cirrhosis with decompensations including hepatic encephalopathy, thrombocytopenia, coagulopathy, ascites and edema, he has a history of traumatic brain injury and epilepsy, admitted with lower extremity edema. Patient noted to have hepatic encephalopathy, as well as portal vein thrombosis with imaging studies showing intraperitoneal varices. GI consultation was obtained for evaluation. Past Medical History As above Past Surgical History History of hip surgery Family History: Diabetes mellitus G8 FATHER Fracture due to fall G8 FATHER Social History Prior history of alcohol abuse as well as tobacco use, no current alcohol use Allergies: Coded Allergies: NO KNOWN ALLERGIES (Unverified , 07/14/24) Home Meds Reported Medications Ondansetron Odt 4MG Tab (ZOFRAN PO) 4 Mg Tb, 4 MG PO Q4HP, TAB ODT TAB-DISSOLVE IN MOUTH, THEN SWALLOW 07/15/24 Gabapentin (Neurontin) 300 Mg Cap, 300 MG PO Q8HP, CAP 07/15/24 Insulin Glargine (Lantus) 100 Unit/Ml Inj, 20 UNIT SC QAM, INJ 07/15/24 Furosemide (Lasix) 20 Mg Tb, 1 TAB PO DAILY, #90 TAB 1 Refill 07/15/24 Levetiracetam (Keppra) 500 Mg Tab, 500 MG PO BID for 30 Days, MG 07/15/24 Lactulose (Lactulose) 10 Gm Humberto, 30 GM PO TID, PACK 07/15/24 Current Medications Current Medications Medications (Trade) Dose Ordered Sig/Annette Route PRN Reason Start Time Stop Time Status Last Admin Lactulose 30 ml TID PO 07/15/24 18:00 07/16/24 06:41 Review of Systems As per HPI No significant weight changes No fevers or chills No chest pain or shortness of breath History of anemia no history of malignancy Diabetes history of TBI and seizure disorder History of cirrhosis with decompensations History of CHF Vital Signs Vital Signs Date Time Temp Pulse Resp B/P (MAP) Pulse Ox O2 Delivery O2 Flow Rate FiO2 07/16/24 06:41 111/41 07/16/24 05:00 97.6 61 18 96 97.6 07/15/24 20:00 Nasal Cannula* 2 28 Physical Exam General: Asleep but arousable lying in bed no distress HEENT: NC/AT EOMI PERRLA scleral icterus is present Chest: Spider angiomata are seen, decreased breath sounds at the bases bilaterally Heart: Regular rate and rhythm , no murmurs rubs gallop Abdomen: Soft nontender nondistended Extremity: No clubbing cyanosis, edema is present bilaterally Neuro: Mild asterixis, moves all four extremities and follows commands Labs/Diagnostic Data Labs Test 07/15/24 17:22 07/15/24 04:41 07/14/24 21:23 07/14/24 06:20 Range/Units POC Glucose 269 H 70-106 mg/dl White Blood Count 5.5 4.4-10.8 10^3/uL Red Blood Count 3.95 L 4.5-5.90 10^6/uL Hemoglobin 14.4 13.5-17.5 g/dL Hematocrit 39.8 L 41.0-53.0 % Mean Corpuscular Volume 100.7 H 80.0-100.0 fL Mean Corpuscular Hemoglobin 36.6 H 28.0-32.0 pg Mean Corpuscular Hemoglobin Concent 36.3 H 32.0-36.0 g/dL Red Cell Distribution Width 16.9 H 11.8-14.3 % Platelet Count 44 L 140-450 10^3/uL Mean Platelet Volume 9.1 6.9-10.8 fL Neutrophils (%) (Auto) 67.6 37.0-80.0 % Lymphocytes (%) (Auto) 21.8 10.0-50.0 % Monocytes (%) (Auto) 8.8 0.0-12.0 % Eosinophils (%) (Auto) 1.3 0.0-7.0 % Basophils (%) (Auto) 0.5 0.0-2.0 % Neutrophils # (Auto) 3.7 1.6-8.6 10 ^3/uL Lymphocytes # (Auto) 1.2 0.4-5.4 10 ^3/uL Monocytes # (Auto) 0.5 0-1.3 10 ^3/uL Eosinophils # (Auto) 0.1 0-0.8 10 ^3/uL Basophils # (Auto) 0 0-0.2 10 ^3/uL Nucleated Red Blood Cells 0.1 % Sodium Level 140 136-145 mmol/L Potassium Level 3.7 3.5-5.1 mmol/L Chloride Level 109 H 98-107 mmol/L Carbon Dioxide Level 24 20-31 mmol/L Anion Gap 7 5-15 Blood Urea Nitrogen 10 9-23 mg/dL Creatinine 0.57 L 0.700-1.30 mg/dL Glomerular Filtration Rate Calc 107 >90 mL/min BUN/Creatinine Ratio 17.5 10.0-20.0 Serum Glucose 261 H 74-106 mg/dL Calcium Level 8.3 L 8.7-10.4 mg/dL Total Bilirubin 2.9 H 0.2-1.0 mg/dL Aspartate Amino Transferase (AST) 30 13-40 U/L Alanine Aminotransferase (ALT) 26 7-40 U/L Alkaline Phosphatase 126 H 46-116 U/L Total Protein 4.5 L 5.7-8.2 g/dL Albumin 2.2 L 3.2-4.8 g/dL Urine Color Light-yellow Yellow Urine Clarity Clear Clear Urine pH 7.0 5.0-9.0 Urine Specific [place] 1.010 1.001-1.035 Urine Protein Negative Negative Urine Ketones Negative Negative Urine Blood 1+ H Negative /uL Urine Nitrite Negative Negative Urine Bilirubin Negative Negative Urine Urobilinogen Normal Negative mg/dL Urine Leukocyte Esterase Negative Negative /uL Urine RBC 11 0 - 3 /hpf Urine Microscopic WBC 5 H 0-3 /HPF Urine Squamous Epithelial Cells Few <5 /hpf Urine Bacteria Few H None Seen /hpf Urine Glucose Normal Normal mg/dL Urine Opiates Screen Neg NEGATIVE Urine Fentanyl Screen Neg NEGATIVE Urine Barbiturates Screen Neg NEGATIVE Urine Phencyclidine Screen Neg NEGATIVE Urine Amphetamines Screen Neg NEGATIVE Urine Benzodiazepines Screen Neg NEGATIVE Urine Cocaine Screen Neg NEGATIVE Urine Cannabinoids Screen Neg NEGATIVE Prothrombin Time 13.0 H 9.3-11.8 sec Prothrombin Time INR 1.25 H 0.9-1.15 Activated Partial Thromboplast Time 31.5 24.5-34.5 SEC Hemoglobin A1c 6.5 H <5.7 % A1C Lactic Acid Level 1.8 0.4-2.0 mmol/L Ammonia 101 H 11-32 umol/L Test 07/14/24 04:40 07/14/24 01:24 07/13/24 20:48 Range/Units Influenza Type A Antigen Negative Negative Influenza Type B Antigen Positive Negative SARS-CoV-2 Antigen (Rapid) Negative NEGATIVE Magnesium Level 1.7 1.6-2.6 mg/dL Direct Bilirubin 1.2 H <0.3 mg/dL Troponin I High Sensitivity 7 </=54 ng/L Vitamin B12 Level 978 H 211-911 pg/mL Vitamin D 25-Hydroxy 23.5 L 30.0-100 ng/mL Folic Acid 11.44 >5.38 ng/mL Thyroid Stimulating Hormone (TSH) 2.84 0.55-4.78 uIU/mL Plasma/Serum Blood Alcohol < 3.0 <10 mg/dL Hepatitis A IgM Antibody Negative Hepatitis B Surface Antigen Negative Negative Hepatitis B Surface Antibody Negative Negative Hepatitis B Core Total Antibody Negative Negative Hepatitis B Core IgM Antibody Negative Negative Hepatitis C Antibody Reactive *A Negative Platelet Estimate Decreased Macrocytosis Slight B-Type Natriuretic Peptide 75.40 0-100 pg/mL Assessment 1. Cirrhosis secondary to alcohol abuse, positive hepatitis-C antibody 2. Decompensations including thrombocytopenia, coagulopathy, hyperbilirubinemia, ascites, hepatic encephalopathy 3. History of TBI, history of seizure disorder 4. Diabetes, hyperlipidemia, CHF 5. Portal vein thrombosis with varices seen on imaging 6. Macrocytosis but no anemia Patient's overall prognosis given CHF and cirrhosis is poor. Symptomatic ma nagement is appropriate at this time . Problems(with codes): (1) Generalized weakness (2) Lower extremity edema Plan/Recommendation 1. Continue with current medications, diuretics, lactulose, proton pump inhibit or 2. Would not recommend anticoagulation for portal vein thrombosis given the fact that the patient has already thrombocytopenic and has a coagulopathy 3. Consider endoscopy when the patient is more stable 4. Low-salt high-protein diet 5. Optimize cardiac function, limit fluid intake 6. Follow labs and replace electrolytes as needed Plan discussed with: Patient ROVERTO CEDENO MD Jul 16, 2024 09:38
--- NOTE | 2024-07-16 10:41 | DVHSR ---
APPROVED REPORT EXAM: Two-dimensional and M-mode echocardiogram with Doppler and color Doppler. Blood Pressure: 133/81 mmHg INDICATION CHF RISK FACTORS Height: 5'5", Weight: 182 DIMENSIONS LVDd5.0 (3.8-5.7cm)LA (2D)4.0 (1.9-4.0cm)Aortic Root3.6 (2.0-3.7cm) LVDs2.5 (2.5-4.0cm)LA (MM) (1.9-4.0cm)Aortic Cusp Exc1.7 (1.5-2.0cm) EF (%) 70.0 (55-70%)Rt. Atrium4.2 (1.9-4.0cm)Asc. Aorta cm IVSd1.1 (0.7-1.1cm)RV (D)4.7 (1.8-2.4cm) PWd1.0 (0.7-1.1cm) Mitral Valve MitralMitral Stenosis E wave1.33m/sMV Mean GR.6mmHg A wave1.61m/sMV Peak GR.109mmHg E/A ratio0.82D MVAcm2 DECEL [id number] 1/2 [id number] IVRTmsDop MVA2.10cm2 Aortic Valve Aortic ValveAortic Stenosis V10.99m/Max Mean GR.6mmHg V21.84m/Max Peak GR.14mmHg LVOT Diameter2.0 (1.8-2.4cm)Doppler AVA1.69cm2 Pulmonic Valve V21.61m/s Tricuspid Valve TR Velocity3.98m/s [id number] Conclusion lvef 60% severe LVH normal rv function severe MAC, mild mitral stenosis mild tricuspid regurg
[2024-07-16 14:44] LABS: Urine Bacteria FEW /hpf (None Seen); Urine Blood 2+ /uL (Negative); Urine Color Light-Orange (Yellow); Urine Mucus FEW (None Seen); Urine Protein, UAD 1+ (Negative); Urine Specific Gravity 1.019 (1.001-1.035); Urine Squamous Epithelial Cell FEW /hpf (<5); Urine Urobilinogen 3 mg/dL (Negative); Urine WBC 189 /HPF (0-3); Urine WBC Clumps PRESENT /hpf (None Seen)
[2024-07-16 14:46] LABS: Urine Clarity Cloudy (Clear)
--- NOTE | 2024-07-16 16:53 | DVHPNRES ---
Progress Note Date Seen: Jul 16, 2024 Resident Creating Document: DUANE PAULINO RESIDENT Has the PT tested + for MRSA If YES, has PT been informed?: No Medical Necessity Reason Pt with a Central, PICC or Fol: No Medical Necessity Reason 07/16 Patient is seen and evaluated today at bedside. He has no complaints he is actually feeling better bilateral pitting edema which was present on admission is currently almost resolved. Patient is feeling a lot better. Patient was also seen today by the GI regarding the portal vein thrombosis. After assessment and evaluation, the GI doctor recommended that continuous medical management for now. They will consider endoscopy when patient is stable; however prognosis is currently poor. Subjective Review of Systems Constitutional: Denies fever no chills no feeling of malaise HEENT: Denies headache, ear pain, ear discharges, conjunctivitis, nasal discharge throat pain Cardiovascular: Denies chest pain, palpitation, orthopnea, PND, or pedal edema Respiratory: Denies shortness of breath, cough cough, sputum production, hemoptysis, GI: Denies abdominal pain, nausea, vomiting, diarrhea, hematemesis, hematochezia, : Denies frequency, urgency, hematuria, Endocrine: Denies unintentional weight gain or weight loss, feeling of hot flashes, Ricardo: Denies easy bruising, bleeding disorders, epistaxis Musculoskeletal: Denies joint pains, muscle aches Psych: No evidence of depression, sukhi, suicidal ideation Objective vital signs Vital Sign Date Time Temp Pulse Resp B/P (MAP) Pulse Ox O2 Delivery O2 Flow Rate FiO2 07/16/24 16:31 98.4 67 18 116/61 (79) 94 98.4 07/16/24 08:00 Nasal Cannula* 2 28 Total Intake and Output 07/15/24 07/15/24 07/16/24 15:00 23:00 07:00 Intake Total 1150 ml 700 ml Output Total 3100 ml 950 ml Balance -1950 ml -250 ml medications Current Medications Medications Dose Ordered Sig/Annette Route Start Time Stop Time Status Last Admin Dose Admin Sodium Chloride 10 ml Q8HR IV 07/14/24 06:00 07/16/24 14:13 10 ML Ondansetron HCl 4 mg Q4HP PRN IV 07/14/24 00:45 Docusate Sodium 100 mg BIDPRN PRN PO 07/14/24 00:45 Insulin Glargine 20 units DAILY@1000 SC 07/14/24 10:00 07/16/24 12:30 20 UNITS Levetiracetam 500 mg BID PO 07/14/24 10:00 07/16/24 09:31 500 MG Pantoprazole Sodium 40 mg DAILY@0600 PO 07/14/24 06:00 07/16/24 06:42 40 MG Furosemide 40 mg BIDD IV 07/14/24 06:00 07/16/24 06:41 40 MG Diagnostic Test (Pha) 1 strip ACHS 07/14/24 07:00 07/16/24 12:31 1 STRIP Insulin Human Regular ACHS SC 07/14/24 07:00 07/16/24 12:31 6 UNITS Dextrose 50 ml UD PRN IV 07/14/24 01:15 Oseltamivir Phosphate 75 mg Q12HR PO 07/14/24 22:00 07/19/24 21:59 07/16/24 09:31 75 MG Hydralazine HCl 10 mg Q6HP PRN IV 07/14/24 20:15 UNV Morphine Sulfate 2 mg Q4HPRN PRN IV 07/14/24 20:15 UNV Lactulose 30 ml TID PO 07/15/24 18:00 07/16/24 14:13 30 ML Examination General examination- awake, alert, oriented, spider telangiectasia at the chest+ HEENT- PEERLA, no acute nasal discharge Cardiovascular- S1-S2 audible, rate and rhythm regular, no murmur Respiratory- bilateral lower lung crackles+ improving Gastrointestinal-nontender, bowel sound+. distended Musculoskeletal-no acute joint swelling or tenderness or redness Extremity- bilateral leg edema+; resolving Neurological- cranial nerves intact, no acute dysarthria or dysphagia Psychiatry- denies depression or SI or HI Skin- no acute rash or purpura laboratory and microbiology Laboratory Tests 07/15/24 04:41 Test 07/15/24 04:41 Range/Units Serum Glucose 261 H 74-106 mg/dL Labs and/or images reviewed: Labs reviewed by me, Image(s) reviewed by me Problem List/Assessment/Plan Problem List/Assessment/Plan Assessment/Plan Suspected acute decompensated liver failure Portal vein thrombosis-ordered CT angio of the abdomen and pelvis-anticoagulant could not be started due to thrombocytopenia, platelets 09091 Acute HFpEF Bilateral leg swelling likely due to acute decompensated HFpEF Influenza type B positive Thrombocytopenia likely due to portal hypertension Spider telangiectasia Portal hypertension Splenomegaly Ascites 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 Continue spironolactone 25 mg p.o. daily Continue insulin lispro and Lantus Continue Keppra 500 mg b.i.d. Lactulose 30 mL b.i.d. Continue Tamiflu (for 3 days) Pantoprazole as prescribed Ordered ultrasound of the gallbladder Plan Per GI : Patient's overall prognosis given CHF and cirrhosis is poor. Symptomatic management is appropriate at this time. Consider endoscopy when the patient is more stable. Likely discharge tomorrow Goal of care discussed for 20 minutes: Full code Case and plan discussed with Dr. Genao Plan discussed with: Patient, Other (RN) Addendum Addendum Addendum I was physically present for the turner portions of the service provided to patient by THE RESIDENT. I have reviewed the documentation, discussed the case with resident and agree with the resident's documentation except as noted. Also the patient's clinical case was discussed with the patient's nurse. This medical document was created using an electronic medical record system with computerized dictation system. Although this document has been carefully reviewed, there might still be some phonetic and typographical errors. These areas are purely typographical due to imperfections of the software programs, and do not reflect any compromise in the patient's medical care. Late signature. Date of Service: Jul 16, 2024 Billing Provider: JACKIE GENAO MD Common Visit Codes: 07377-[id number] INP/OBS CARE(HIGH) Secondary Visit Codes: 92945-EXMYEQTF CARE PLAN 30 MINUTES (20 minutes) DUANE PAULINO Jul 16, 2024 16:53 JACKIE GENAO MD Jul 17, 2024 05:01
[2024-07-17 01:00] VITALS: BP 106/52; PULSE 60; RESP 18; TEMP 97.7; O2SAT 95
[2024-07-17] MEDS ORDERED: DEXTROSE (50%) 50ML SYRG IV PRN (07:30)
[2024-07-17 08:00] VITALS: PULSE 67; PULSE 68; RESP 17; O2SAT 94
[2024-07-17] MEDS ORDERED: InsuLIN REG 1unit/0.01ml Soln (100units/ml) SC SCH (08:00)
[2024-07-17 09:00] VITALS: BP 122/60; PULSE 67; RESP 17; TEMP 98; O2SAT 94
[2024-07-17] MEDS: ACCU-CHEK COMFORT CURVE STRIP VI SCH (09:31)
[2024-07-17] MEDS: SPIRONOLACTONE 25 MG TAB PO SCH (09:34)
[2024-07-17 09:37] LABS: Basophils # (auto) 0 10 ^3/uL (0-0.2); Eosinophils # (auto) 0.1 10 ^3/uL (0-0.8); Platelet Count (auto) 42 10^3/uL (140-450)
[2024-07-17 09:43] LABS: Basophils % (auto) 0.7 % (0.0-2.0); Eosinophils % (auto) 1.9 % (0.0-7.0); Hematocrit 43.9 % (41.0-53.0); Hemoglobin 15.9 g/dL (13.5-17.5); Lymphocytes # (auto) 1.2 10 ^3/uL (0.4-5.4); Lymphocytes % (auto) 20.8 % (10.0-50.0); Mean Corpuscular Hemoglobin 35.9 pg (28.0-32.0); Mean Corpuscular Hgb Conc. 36.2 g/dL (32.0-36.0); Mean Corpuscular Volume 99.3 fL (80.0-100.0); Monocytes # (auto) 0.4 10 ^3/uL (0-1.3); Monocytes % (auto) 7.3 % (0.0-12.0); Neutrophils # (auto) 4.1 10 ^3/uL (1.6-8.6); Neutrophils % (auto) 69.3 % (37.0-80.0); Nucleated Red Blood Cells % 0.6 %; Red Blood Cells 4.42 10^6/uL (4.5-5.90); Red Cell Distribution Width 16.1 % (11.8-14.3); White Blood Cell 5.9 10^3/uL (4.4-10.8)
[2024-07-17 09:54] LABS: Alanine Aminotransferase 29 U/L (7-40); Anion Gap 6 (5-15); Aspartate Aminotransferase 33 U/L (13-40); Blood Urea Nitrogen 11 mg/dL (9-23); Carbon Dioxide 28 mmol/L (20-31); Chloride 106 mmol/L (98-107); Sodium 140 mmol/L (136-145)
[2024-07-17 10:04] LABS: Albumin 2.6 g/dL (3.2-4.8); Alkaline Phosphatase 126 U/L (46-116); Bilirubin, Total 4.5 mg/dL (0.2-1.0); Calcium 8.2 mg/dL (8.7-10.4); Glucose 176 mg/dL (74-106); Potassium 3.4 mmol/L (3.5-5.1); Total Protein 5.2 g/dL (5.7-8.2)
[2024-07-17] MEDS: INSULIN LISPRO (HUMAN) 100 UNITS/ML ML SC SCH ×2 (12:27→12:28)
[2024-07-17 13:00] VITALS: BP 120/66; PULSE 61; RESP 18; TEMP 97.4; O2SAT 97
[2024-07-17] MEDS ORDERED: SPIR100T4 PO (13:27)
[2024-07-17] MEDS ORDERED: FURO1TAB33 PO (13:27)
[2024-07-17] MEDS: POTASSIUM EFFERVESENT TAB 25 MEQ PO ONE (15:11)
[2024-07-17] MEDS ORDERED: OSEL75CA5 PO (15:24)
--- NOTE | 2024-07-17 15:37 | DVHDSRES ---
Discharge Summary Date of Admission Resident Creating Document: DUANE PAULINO RESIDENT July 14, 2024 at 00:41 Date of Discharge: Jul 17, 2024 Admitting Diagnosis Acute decompensated liver failure Wounds: Labs/Diagnostic Data: Laboratory Results Test 07/17/24 11:48 07/17/24 08:52 07/16/24 14:20 07/14/24 21:23 POC Glucose 280 mg/dl (70-106) White Blood Count 5.9 10^3/uL (4.4-10.8) Red Blood Count 4.42 10^6/uL (4.5-5.90) Hemoglobin 15.9 g/dL (13.5-17.5) Hematocrit 43.9 % (41.0-53.0) Mean Corpuscular Volume 99.3 fL (80.0-100.0) Mean Corpuscular Hemoglobin 35.9 pg (28.0-32.0) Mean Corpuscular Hemoglobin Concent 36.2 g/dL (32.0-36.0) Red Cell Distribution Width 16.1 % (11.8-14.3) Platelet Count 42 10^3/uL (140-450) Mean Platelet Volume 9.4 fL (6.9-10.8) Neutrophils (%) (Auto) 69.3 % (37.0-80.0) Lymphocytes (%) (Auto) 20.8 % (10.0-50.0) Monocytes (%) (Auto) 7.3 % (0.0-12.0) Eosinophils (%) (Auto) 1.9 % (0.0-7.0) Basophils (%) (Auto) 0.7 % (0.0-2.0) Neutrophils # (Auto) 4.1 10 ^3/uL (1.6-8.6) Lymphocytes # (Auto) 1.2 10 ^3/uL (0.4-5.4) Monocytes # (Auto) 0.4 10 ^3/uL (0-1.3) Eosinophils # (Auto) 0.1 10 ^3/uL (0-0.8) Basophils # (Auto) 0 10 ^3/uL (0-0.2) Nucleated Red Blood Cells 0.6 % Sodium Level 140 mmol/L (136-145) Potassium Level 3.4 mmol/L (3.5-5.1) Chloride Level 106 mmol/L (98-107) Carbon Dioxide Level 28 mmol/L (20-31) Anion Gap 6 (5-15) Blood Urea Nitrogen 11 mg/dL (9-23) Creatinine 0.50 mg/dL (0.700-1.30) Glomerular Filtration Rate Calc 112 mL/min (>90) BUN/Creatinine Ratio 22.0 (10.0-20.0) Serum Glucose 176 mg/dL (74-106) Calcium Level 8.2 mg/dL (8.7-10.4) Total Bilirubin 4.5 mg/dL (0.2-1.0) Aspartate Amino Transferase (AST) 33 U/L (13-40) Alanine Aminotransferase (ALT) 29 U/L (7-40) Alkaline Phosphatase 126 U/L (46-116) Total Protein 5.2 g/dL (5.7-8.2) Albumin 2.6 g/dL (3.2-4.8) Urine Color Light-orange (Yellow) Urine Clarity Cloudy (Clear) Urine pH 7.0 (5.0-9.0) Urine Specific [place] 1.019 (1.001-1.035) Urine Protein 1+ (Negative) Urine Ketones Negative (Negative) Urine Blood 2+ /uL (Negative) Urine Nitrite Negative (Negative) Urine Bilirubin Negative (Negative) Urine Urobilinogen 3 mg/dL (Negative) Urine Leukocyte Esterase 3+ /uL (Negative) Urine RBC 142 /hpf (0 - 3) Urine WBC Clumps Present /hpf (None Seen) Urine Microscopic WBC 189 /HPF (0-3) Urine Squamous Epithelial Cells Few /hpf (<5) Urine Bacteria Few /hpf (None Seen) Urine Mucus Few (None Seen) Urine Glucose 3+ mg/dL (Normal) Urine Opiates Screen Neg (NEGATIVE) Urine Fentanyl Screen Neg (NEGATIVE) Urine Barbiturates Screen Neg (NEGATIVE) Urine Phencyclidine Screen Neg (NEGATIVE) Urine Amphetamines Screen Neg (NEGATIVE) Urine Benzodiazepines Screen Neg (NEGATIVE) Urine Cocaine Screen Neg (NEGATIVE) Urine Cannabinoids Screen Neg (NEGATIVE) Test 07/14/24 06:20 07/14/24 04:40 07/14/24 01:24 07/13/24 20:48 Prothrombin Time 13.0 sec (9.3-11.8) Prothrombin Time INR 1.25 (0.9-1.15) Activated Partial Thromboplast Time 31.5 SEC (24.5-34.5) Hemoglobin A1c 6.5 % A1C (<5.7) Lactic Acid Level 1.8 mmol/L (0.4-2.0) Ammonia 101 umol/L (11-32) Influenza Type A Antigen Negative (Negative) Influenza Type B Antigen Positive (Negative) SARS-CoV-2 Antigen (Rapid) Negative (NEGATIVE) Magnesium Level 1.7 mg/dL (1.6-2.6) Direct Bilirubin 1.2 mg/dL (<0.3) Troponin I High Sensitivity 7 ng/L (</=54) Vitamin B12 Level 978 pg/mL (211-911) Vitamin D 25-Hydroxy 23.5 ng/mL (30.0-100) Folic Acid 11.44 ng/mL (>5.38) Thyroid Stimulating Hormone (TSH) 2.84 uIU/mL (0.55-4.78) Plasma/Serum Blood Alcohol < 3.0 mg/dL (<10) Hepatitis A IgM Antibody Negative Hepatitis B Surface Antigen Negative (Negative) Hepatitis B Surface Antibody Negative (Negative) Hepatitis B Core Total Antibody Negative (Negative) Hepatitis B Core IgM Antibody Negative (Negative) Hepatitis C Antibody Reactive (Negative) Platelet Estimate Decreased Macrocytosis Slight B-Type Natriuretic Peptide 75.40 pg/mL (0-100) Other Laboratory Tests 07/17/24 08:52 Brief Hx & Hospital Course: Patient is 68 years old male with a past medical history of hypertension, diabetes mellitus type 2, hyperlipidemia, CHF, cirrhosis of liver, portal hypertension, history of epilepsy, history of hepatic encephalopathy, history of right hip fracture, status post surgery, history of traumatic brain injury came with a complaint of leg swelling. As per patient he has been having worsening leg swelling for last 1 week. It was mild before but leg swelling got worse in last 1 week. Patient reported he ambulates occasionally but since most of the time. Patient denied any chest pain, shortness of breath, acute diarrhea, or constipation, joint pain or swelling, any sick contact, nausea or vomiting. Initial lab workup revealed thrombocytopenia with a platelet 38, MCV 100.8, blood sugar 343, serum bilirubin 3.1, direct bilirubin 1.24, AST and ALT with a normal limit. Ammonia 124. troponin bed with a normal limit. Positive for influenza type B. negative for COVID. Chest x-ray -Prominent interstitial markings diffusely throughout both lung de jesus. Correlate clinically for possible congestive failure versus pneumonia. Venous Doppler negative for DVT. Ultrasound of the gallbladder revealed- Cirrhosis. Absent flow in the main portal vein suspicious for portal vein thrombosis. Splenomegaly. Ascites. Course course: Patient was admitted on the line if acute on chronic liver failure leading to ascites. Patient was started on IV diuretic Lasix 40 mg b.i.d. and spironolactone [address] scan showed main portal vein thrombosis, hepatic cirrhosis, splenomegaly with numerous abdominal varices and status post TIPS. Ultrasound showed mild ascites. Echocardiogram showed severe LVH with LVEF 60% with mild MS and TR. Serology test showed influenza type B and the patient was given Tamiflu. GI was consulted, due to severe thrombocytopenia, recommended conservative management (Protonix, diuretic and lactulose) with no anticoagulant. On 07/18/2011, the patient was feeling better since admission. Abdominal distention leg swelling were improved, discharge plan discussed with the patient and the patient discharged home. Discharge plan: Follow up with the PCP within 1 week of the discharge Follow up with GI on outpatient basis Lasix 40 mg daily Spironolactone 100 mg daily Tamiflu 75 mg b.i.d. for 2 days Continue home meds Operations or Procedures [place] [address] Ph: [phone] DIAGNOSTIC IMAGING Diagnostic Imaging Report : [id number] Signed PATIENT: BUBBA DONAHUE ACCT: [id number] UNIT: [id number] : 1955 LOC: [facility]IATRIC ROOM [facility] AGE / SEX: 68 / M ADM STATUS: ADM IN SERVICE ORDERING PHYSICIAN: CHAMP GUZMAN RESIDENT PROCEDURE(s): [facility]ID[facility] - ECHO 2D MODE CARDIAC DOP REASON: CHF ORDER NUMBER(s): [id number], ACCESSION NUMBER(s): [id number] APPROVED REPORT EXAM: Two-dimensional and M-mode echocardiogram with Doppler and color Doppler. Blood Pressure: 133/81 mmHg INDICATION CHF RISK FACTORS Height: 5'5", Weight: 182 DIMENSIONS LVDd 5.0 (3.8-5.7cm) LA (2D) 4.0 (1.9-4.0cm) Aortic Root 3.6 (2.0- 3.7cm) LVDs 2.5 (2.5-4.0cm) LA (MM) (1.9-4.0cm) Aortic Cusp Exc 1.7 (1.5- 2.0cm) EF (%) 70.0 (55-70%) Rt. Atrium 4.2 (1.9-4.0cm) Asc. Aorta cm IVSd 1.1 (0.7-1.1cm) RV (D) 4.7 (1.8-2.4cm) PWd 1.0 (0.7-1.1cm) Mitral Valve Mitral Mitral Stenosis E wave 1.33m/s MV Mean GR. 6mmHg A wave 1.61m/s MV Peak GR. 109mmHg E/A ratio 0.8 2D MVA cm2 DECEL Time 487ms PRESS 1/2 Time 105ms IVRT ms Dop MVA 2.10cm2 Aortic Valve Aortic Valve Aortic Stenosis V1 0.99m/s AO Mean GR. 6mmHg V2 1.84m/s AO Peak GR. 14mmHg LVOT Diameter 2.0 (1.8-2.4cm) Doppler MARYAM 1.69cm2 Pulmonic Valve V2 1.61m/s Tricuspid Valve TR Velocity 3.98m/s RVSP 72mmHg Conclusion lvef 60% severe LVH normal rv function severe MAC, mild mitral stenosis mild tricuspid regurg SIGNED BY: NEERAJ DUDLEY MD SIGNED DATE/TIME: 07/16/24 1041 CC: Condition at Discharge: Fair Final Diagnosis/Problems List Acute hepatic encephalopathy Acute on chronic liver failure, likely due to alcohol use disorder and/hepatitis-C virus Decompensated liver cirrhosis Ascites, due to liver cirrhosis/portal vein thrombosis ? Acute on chronic diastolic heart failure Splenomegaly Hepatitis-C virus positive Severe thrombocytopenia, likely due to liver cirrhosis Portal vein thrombosis Severe protein malnutrition Diabetes type 2 Pneumonia, likely due to Gram-positive/Gram-negative bacteria/viral Influenza type B Hypertension History of epilepsy Dyslipidemia Hyper ammonia History of traumatic brain injury Spider telangiectasia Hypokalemia Hyperbilirubinemia Vitamin B12 deficiency Vitamin-D deficiency Complicated urinary tract infection Discharge Disposition: Home Discharge Instruct/Medications Diet: Cardiac 2g Na,low cholest Activity: No Restrictions, As Tolerated Follow Up/Referral: Follow up with the PCP within 1 week of the discharge. Follow up with the GI doctor on outpatient basis. Follow up with the outpatient clinic within 1 week of the discharge Medications: Lasix 40 mg daily Spironolactone 100 mg daily Continue home meds Discharge Statement: "Patient was advised to return to the ER or call 911 if any headaches, dizziness, shortness of breath, chest pain, abdominal pain, bleeding, fevers, or worsening of medical condition. Patient was counseled about treatment plan, medications, possible side effects, patientverbalized understanding. All questions were answered to the best of my ability. This discharge took greater then 30 minutes in planning, reviewing documentation, counseling the patient, and discussing with other team members." ASSESSMENT ASSESSMENT Assessment Portal vein thrombosis Date of Service: Jul 17, 2024 Billing Provider: YARELIS RAMIREZ MD Common Visit Codes: 11812-GQP/OBS DISCH DAY >30min NYA CAICEDO RESDIENT Jul 17, 2024 15:37 YARELIS RAMIREZ MD Jul 18, 2024 09:17
[2024-07-17 16:04] VITALS: BP 111/63; PULSE 65; RESP 17; TEMP 97.6; O2SAT 98
[2024-07-17 17:06] VITALS: BP 122/76; PULSE 66; RESP 17; TEMP 98.2; O2SAT 98
--- NOTE | 2024-07-19 10:26 | ECG ---
[facility] Test Date: 2024-07-17 Test Time: 15:49:23 Pat Name: BUBBA DONAHUE Department: Room: 0201T A Gender: M Reimbursement Representative: MESERET : 1955 Requested By: NYA CAICEDO Order Number: [id number] Reading MD: Naif Maldonado Measurements Intervals [place] Rate: 64 P: 73 GA: 207 QRS: 150 QRSD: 161 T: 4 QT: 500 QTc: 516 Interpretive Statements Sinus rhythm Probable left atrial enlargement RBBB and LPFB Inferior infarct, old Lateral leads are also involved Baseline wander in lead(s) V1 Electronically Signed On 07-19-2024 14:40:25 PDT by Naif Maldonado Please click the below link to view image of tracing.
== END 2024-07-17 20:30 | disposition home or self-care (01) | DRG 432 ==
LOC: ER 20:02 → OVERFLOW 07-14 00:41 → TELE-CENTR 07-14 22:21
PROVIDERS: ADMIT Student in an Organized Health Care Education/Training Program; ATTEND Emergency Medicine
DX: K70.31 Alcoholic cirrhosis of liver with ascites (principal); E43 Unspecified severe protein-calorie malnutrition; J15.69 Pneumonia due to other Gram-negative bacteria; I81 Portal vein thrombosis; K72.00 Acute and subacute hepatic failure without coma; J15.9 Unspecified bacterial pneumonia; I50.33 Acute on chronic diastolic (congestive) heart failure; J12.9 Viral pneumonia, unspecified; D68.9 Coagulation defect, unspecified; K76.6 Portal hypertension; N39.0 Urinary tract infection, site not specified; Z59.00 Homelessness unspecified; E72.20 Disorder of urea cycle metabolism, unspecified; K76.82 Hepatic encephalopathy; I11.0 Hypertensive heart disease with heart failure; B19.20 Unspecified viral hepatitis C without hepatic coma; D69.59 Other secondary thrombocytopenia; E78.5 Hyperlipidemia, unspecified; F10.10 Alcohol abuse, uncomplicated; I78.1 Nevus, non-neoplastic; G40.909 Epilepsy, unspecified, not intractable, without status epilepticus; E11.9 Type 2 diabetes mellitus without complications; Z20.822 Contact with and (suspected) exposure to COVID-19; D75.89 Other specified diseases of blood and blood-forming organs; R16.1 Splenomegaly, not elsewhere classified; J10.1 Influenza due to other identified influenza virus with other respiratory manifestations; K72.10 Chronic hepatic failure without coma; E87.6 Hypokalemia; E55.9 Vitamin D deficiency, unspecified; E53.8 Deficiency of other specified B group vitamins; E80.6 Other disorders of bilirubin metabolism; Z79.4 Long term (current) use of insulin; Z79.899 Other long term (current) drug therapy; Z87.820 Personal history of traumatic brain injury; Z83.3 Family history of diabetes mellitus
CPT/HCPCS: 36415; 71045; 74178; 76705; 80048; 80053; 80074; 80076; 80307; 80320; 81001; 82140; 82306; 82607; 82746; 82962; 83036; 83605; 83735; 83880; 84443; 84484; 85025; 85610; 85730; 86706; 87426; 87804; 93005; 93306; 93970; G0378; J1815

== ENCOUNTER 2024-07-24 10:07 | Outpatient (CLI) | payer MEDICARE ==
[~2024-07-24 10:07] MED LIST: FURO1TAB33 PO; GABA300C PO; INSLANTI SC; LACT10PA2 PO; LEVE500T40 PO; OSEL75CA5 PO; SPIR100T4 PO; ZOFR4T PO
[2024-07-24 10:53] LABS: Basophils # (auto) 0 10 ^3/uL (0-0.2); Basophils % (auto) 0.5 % (0.0-2.0); Eosinophils # (auto) 0.1 10 ^3/uL (0-0.8); Hematocrit 47.4 % (41.0-53.0); Lymphocytes # (auto) 1.2 10 ^3/uL (0.4-5.4); Lymphocytes % (auto) 17.2 % (10.0-50.0); Mean Corpuscular Hgb Conc. 35.9 g/dL (32.0-36.0); Mean Corpuscular Volume 100.1 fL (80.0-100.0); Monocytes # (auto) 0.6 10 ^3/uL (0-1.3); Monocytes % (auto) 8.8 % (0.0-12.0); Neutrophils # (auto) 4.9 10 ^3/uL (1.6-8.6); Neutrophils % (auto) 71.5 % (37.0-80.0); Nucleated Red Blood Cells % 0.1 %; Platelet Count (auto) 47 10^3/uL (140-450); Red Blood Cells 4.73 10^6/uL (4.5-5.90); Red Cell Distribution Width 15.7 % (11.8-14.3); White Blood Cell 6.9 10^3/uL (4.4-10.8)
[2024-07-24 11:01] LABS: Urine Bacteria MANY /hpf (None Seen); Urine Blood 1+ /uL (Negative); Urine Clarity Ex.Turbid (Clear); Urine Color DARK YELLOW (Yellow); Urine Protein, UAD 1+ (Negative); Urine Specific Gravity 1.023 (1.001-1.035); Urine Squamous Epithelial Cell None Seen /hpf (<5); Urine Urobilinogen 2 mg/dL (Negative); Urine WBC 1461 /HPF (0-3); Urine WBC Clumps PRESENT /hpf (None Seen)
[2024-07-24 11:07] LABS: INR 1.23 (0.9-1.15); Prothrombin Time 12.8 sec (9.3-11.8)
[2024-07-24 11:12] LABS: Alanine Aminotransferase 26 U/L (7-40); Anion Gap 8 (5-15); Aspartate Aminotransferase 26 U/L (13-40); BUN/Creatinine Ratio 15.3 (10.0-20.0); Blood Urea Nitrogen 9 mg/dL (9-23); Calcium 8.8 mg/dL (8.7-10.4); Carbon Dioxide 23 mmol/L (20-31); Chloride 104 mmol/L (98-107); Cholesterol 140 mg/dL (< 200); HDL Cholesterol 48 mg/dL (40-59); LDL Cholesterol 77 mg/dL (< 100); Potassium 4.8 mmol/L (3.5-5.1); Total Protein 5.8 g/dL (5.7-8.2); Triglycerides 73 mg/dL (< 150)
[2024-07-24 11:23] LABS: Albumin 2.9 g/dL (3.2-4.8); Alkaline Phosphatase 153 U/L (46-116); Bilirubin, Total 3.9 mg/dL (0.2-1.0); Glucose 267 mg/dL (74-106); Sodium 135 mmol/L (136-145)
[2024-07-24 11:27] LABS: Prostate Specific Antigen 0.3 ng/mL (0.0-4.0)
[2024-07-24 11:31] LABS: Erythrocyte Sedimentation Rate 2 mm/hr (0-20)
[2024-07-24 11:33] LABS: Free T4 (Free Thyroxine) 1.05 ng/dL (0.89-1.76)
== END 2024-07-24 17:00 | disposition home or self-care (01) ==
LOC: LAB 10:07
PROVIDERS: ATTEND Internal Medicine
DX: E11.42 Type 2 diabetes mellitus with diabetic polyneuropathy (principal); K74.60 Unspecified cirrhosis of liver; Z79.899 Other long term (current) drug therapy
CPT/HCPCS: 36415; 80053; 80061; 81001; 82043; 82140; 82607; 84153; 84439; 84443; 85025; 85610; 85652

== ENCOUNTER 2024-07-31 12:30 | Outpatient (CLI) | payer MEDICARE | END 2024-07-31 17:00 | disposition home or self-care (01) | LOC: LAB 12:30 | PROVIDERS: ATTEND Internal Medicine | DX: K70.30 Alcoholic cirrhosis of liver without ascites (principal) | CPT/HCPCS: 82140 ==